=== PATIENT | female | born 1950 | race Caucasian/White ===

== ENCOUNTER → 2021-01-04 | Outpatient (CLI) | payer BC, MEDICARE ==
[~2021-01-04] MED LIST: CATHETER FLUSH 10 ML SYR IV PRN
--- NOTE | 2021-01-04 13:56 | Diagnostic Imaging Report ---
INDICATION: Right upper quadrant pain. TECHNIQUE: Patient was administered 5.5 mCi technetium-99m Choletec intravenously, and imaging over the abdomen was performed. After 60 minutes, patient ingested Ensure, and gallbladder ejection fraction was calculated. FINDINGS: There is homogeneous uptake of activity by the liver with prompt excretion of activity into the common duct and gallbladder. There is normal passage of activity into the small bowel. Gallbladder ejection fraction is abnormally low at 15%. Normal values are 35% or greater. IMPRESSION: 1. Patent cystic duct and common bile duct. 2. Abnormally low gallbladder ejection fraction of 15%. Dictated by: Dictated on workstation # [id number]
== END ==
LOC: CARD 09:29
PROVIDERS: ATTEND Surgery
DX: R10.11 Right upper quadrant pain (principal)
CPT/HCPCS: 78227; A9537

== ENCOUNTER → 2021-12-31 | Outpatient (CLI) | payer MEDICARE, OTHER ==
--- NOTE | 2021-12-31 12:21 | Diagnostic Imaging Report ---
PET/CT. INDICATION: Right lung mass. EXAMINATION: After intravenous administration of 14.04 mCi of F18-FDG injected into the right antecubital fossa, a series of overlapping emission and transmission PET images was obtained. In the coronal, transaxial and sagittal planes, the area imaged extended from the skull base through the upper thighs. Height 5' 9". Weight 165 Blood glucose 87 There are no prior PET/CT examinations or cross-sectional imaging studies available for comparison. The CT images do show a 2.5 x 4.9 cm mass in the right suprahilar region. The mass is hypermetabolic with a maximum SUV of 7.3. There is also a small roughly 1 cm hypermetabolic node in the right hilum adjacent to the mass. This has a maximum SUV of 3.73. The CT images also show several small nodules scattered about the mass in the right upper lung as well as 1 or 2 nodules in the left lung. These nodules are not hypermetabolic but still worrisome for neoplastic disease. There is a small focus of hypermetabolic activity along the posterior aspect of the right 9th rib. This has a maximum she view of 2.31. This finding is suspicious for neoplastic disease. There are also 2 small areas of slightly increased hypermetabolic activity along the periphery of the right lobe of the liver. The larger and the more inferior of these has a maximum SUV of 3.58. The other lesion is too small to accurately determine its hypermetabolic activity.. There is no other hypermetabolic activity seen to suggest malignancy. Physiologic activity is seen in the kidneys, bowel, bladder and brain. The CT images do show that there is a pleural effusion on the right. The effusion measures approximately 3.2 cm maximum depth. There is no acute abnormality identified otherwise. IMPRESSION: 1. There is a 2.5 x 4.9 cm hypermetabolic mass in the right suprahilar region. This should be considered neoplastic until proven otherwise. 2. The small node in the right hilar region in the area of increased activity along the periphery of the right lobe of the liver are most likely neoplastic as well. The smaller area of increased activity in the right 9th rib is suspicious for neoplasm as well. 3. The nodules in the right upper lobe and the scattered nodules in the left lung are not hypermetabolic but still worrisome for malignancy. 4. There is no other hypermetabolic activity to suggest the presence of malignancy. 5. There is a moderate right pleural effusion. There is no acute abnormality identified otherwise. Dictated by: Dictated on workstation # [id number]
== END ==
LOC: RAD 08:15
PROVIDERS: ATTEND Family Medicine
DX: R91.8 Other nonspecific abnormal finding of lung field (principal); J90 Pleural effusion, not elsewhere classified
CPT/HCPCS: 78815; A9552

== ENCOUNTER → 2022-01-09 | Outpatient (CLI) | payer MEDICARE, OTHER ==
[~2022-01-09] VITALS: Ht 175.3 cm; Wt 75.0 kg
[~2022-01-09] MED LIST changes: -CATHETER FLUSH 10 ML SYR IV PRN; +LIDOCAINE 1% INJ 30 ML (XYLOCAINE) VIAL INJ ONE
[2022-01-09 14:27] LABS: INR 0.9 (0.8-1.4)
--- NOTE | 2022-01-09 15:26 | Diagnostic Imaging Report ---
INDICATION: Thoracentesis follow-up. FINDINGS: There is a mass in the right upper medial chest measuring 4.7 cm in diameter. There are no infiltrates, effusions or pneumothoraces. Heart size and pulmonary vascularity are normal. IMPRESSION: Right upper lobe mass. No evidence for pneumothorax or pleural effusion following thoracentesis. Dictated by: Dictated on workstation # [id number]
[2022-01-09 15:30] VITALS: BP 119/62
[2022-01-09 15:58] LABS: BODY FLUID RBC COUNT 0.001 10^6/uL; BODY FLUID WBC TOTAL COUNT 1.846 10^3/uL
--- NOTE | 2022-01-09 16:09 | Diagnostic Imaging Report ---
INDICATION: Right-sided pleural effusion. EXAMINATION: Patient presents for ultrasound-guided thoracentesis. PROCEDURE: Patient was brought to the procedure room and placed on the bed in a sitting upright position leaning on a table. Ultrasound imaging of the right posterior thorax was performed to evaluate appropriate entry site. Right posterior thorax was then prepped and draped in the usual sterile fashion. A small amount of 1% lidocaine was utilized for local anesthesia. Thoracentesis catheter was advanced into the posterior pleural space. A total of 500 mL of fluid was removed. Catheter was removed and hemostasis was obtained. Patient tolerated the procedure well. Patient was sent for postprocedure chest x-ray in satisfactory condition. IMPRESSION: Successful ultrasound-guided thoracentesis, as described. Dictated by: Dictated on workstation # [id number]
[2022-01-09 16:36] LABS: BODY FLUID SOURCE PLEURAL
[2022-01-09 16:37] LABS: BODY FLUID APPEARENCE MOD CLDY; BODY FLUID COLOR YELLOW
== END ==
LOC: RAD 14:30
PROVIDERS: ATTEND Family Medicine
DX: R91.8 Other nonspecific abnormal finding of lung field (principal)
CPT/HCPCS: 32555; 71045; 85610; 87070; 87075; 87205; 89051; A7048; 36415

== ENCOUNTER → 2022-06-07 | Outpatient (CLI) | payer MEDICARE, OTHER ==
--- NOTE | 2022-06-07 14:29 | Diagnostic Imaging Report ---
Adenocarcinoma of the right lung. Patient was administered 26.1 mCi technetium 99m MDP intravenously and whole-body imaging was performed after a three-hour delay. No prior whole-body bone scans are available for comparison. There is normal uptake of activity by the axial and appendicular skeleton. There is uptake by the kidneys with excretion into the urinary bladder. There is some uptake involving right-sided lower anterior ribs. In reviewing the patient's prior PET/CT study from 12/31/2021, there appears to be some sclerosis involving right-sided anterior 7th and 8th ribs. There is also a focus of uptake at the lower thoracic level, at approximately T12 on the right side, near rib articulation with the vertebrae. No definite correlate on the CT is identified. No other suspicious foci are seen. IMPRESSION: Abnormal uptake involving lower right anterior ribs as well as approximately the T12 level on the right side. Metastatic lesions cannot be entirely excluded. No other suspicious regions of uptake are identified. Dictated by: Dictated on workstation # [id number]
== END ==
LOC: CARD 10:33
PROVIDERS: ATTEND Nurse Practitioner Adult Health
DX: Z51.11 Encounter for antineoplastic chemotherapy (principal); C34.11 Malignant neoplasm of upper lobe, right bronchus or lung; C78.7 Secondary malignant neoplasm of liver and intrahepatic bile duct; C79.51 Secondary malignant neoplasm of bone
CPT/HCPCS: 78306; A9503

== ENCOUNTER 2022-06-13 11:10 | Observation (INO) | payer MEDICARE, OTHER ==
[~2022-06-13] VITALS: Ht 175 cm; Wt 77.3 kg
[2022-06-13 11:27] VITALS: BP 123/67
[2022-06-13] MEDS ORDERED: LIDOCAINE 1% INJ 20 ML VIAL ONE (12:01)
[2022-06-13] MEDS ORDERED: LACTATED RINGERS 1,000 ML IV SCH (13:30)
[2022-06-13] MEDS ORDERED: LIDOCAINE 1% INJ 20 ML VIAL INJ ONE (13:30)
--- NOTE | 2022-06-13 13:41 | Diagnostic Imaging Report ---
INDICATION: Thoracentesis AP view of the chest is obtained with comparison made to study of 01/09/2022. A right hilar mass lesion is again identified. There is also an increase in right basilar density which could be due to atelectasis and/or pneumonitis. There is an approximately 10% right pneumothorax. No midline shift is seen. IMPRESSION: Mild right pneumothorax without evidence of tension pneumothorax. There is persistent right hilar density which may represent mass or adenopathy with increasing right basilar infiltrate. Dictated by: Dictated on workstation # [id number]
[2022-06-13 15:15] VITALS: BP 121/62
--- NOTE | 2022-06-13 15:42 | History & Physical-Surgical ---
History of Present Illness History of Present Illness Patient Consulted On(darci/time) 06/13/22 15:37 Date Seen by Provider: Jun 13, 2022 Time Seen by Provider: 12:00 History of Present Illness This is a 71y F with PMH of metastatic lung cancer. Patient presented for right ultrasound guided thoracentesis. After procedure she became hypotensive 80s/40s and had CP and SOB which improved upon receiving IV fluids. 2700cc was drained. CXR post procedure revealed small right pneumothorax. Patient now reports she is feeling much better, still some pain when she takes a deep breath. Denies CP, SOB, n/v, fevers. 71 year old female who came to same day surgery for thoracentesis. SHe has metastatic lung cancer. SHe has been having increasing shortenss of breath. U/s was used to do right thoracentesis and took of 2700 mL of dark bloody fluid. During she did have episode of hypotension (80's/40's) Was given fluid and improved. Also was having some chest pain and cough. Improved after catheter was removed. Had chest x ray which demonstrates small right pneumothorax. Allergies and Home Medications Allergies Coded Allergies: No Known Drug Allergies (Unverified , 01/04/21) Patient Home Medication List Home Medication List Reviewed: Yes (takes Lexapro) Past Jynecmp-Cfnimx-Tksrcu Hx Patient Social History Smoking Status: Former Smoker (quit 14 years ago) Type Used: Cigarettes Alcohol Use?: No Have you traveled recently?: No Surgeries History of Surgeries: Yes Surgeries: Section (x2), Gallbladder (2021-Kb), Tonsillectomy Cardiovascular History of Cardiac Disorders: No Neurological History of Neurological Disord: No Genitourinary History of Genitourinary Disor: No Musculoskeletal History of Musculoskeletal Dis: No Endocrine History of Endocrine Disorders: No HEENT History of HEENT Disorders: No Cancer History of Cancer: Yes Cancer: Lung (metastatic-diagnoses 2021) Psychosocial History of Psychiatric Problem: Yes Behavioral Health Disorders: Anxiety, Depression Reviewed Nursing Assessment Reviewed/Agree w Nursing PMH: Yes Family Medical History Significant Family History: Cancer (both parents-lung CA) Review of Systems-General Constitutional: No chills, No diaphoresis EENTM: No blurred vision, No double vision Respiratory: cough; No short of breath; other (pain with deep breath) Cardiovascular: chest pain; No edema Gastrointestinal: No abdominal pain, No nausea, No vomiting Genitourinary: No decreased output, No discharge Musculoskeletal: No back pain, No joint pain Skin: No change in color, No change in hair/nails Psychiatric/Neurological: Denies Headache, Denies Numbness All Other Systems Reviewed Negative Unless Noted: Yes (Negative excepted noted.) Physical Exam-General Problems Physical Exam Vital Signs Vital Signs - First Documented 06/13/22 06/13/22 11:27 15:32 Temp 36.3 Pulse 67 Resp 18 B/P (MAP) 123/67 Pulse Ox 92 O2 Delivery Room Air O2 Flow Rate 3.00 Capillary Refill : Less Than 3 Seconds General Appearance: WD/WN, no apparent distress HEENT: PERRL/EOMI, pharynx normal Neck: non-tender, supple, normal inspection Respiratory: chest non-tender, no respiratory distress, no accessory muscle use Cardiovascular: normal peripheral pulses, regular rate, rhythm, no edema, no JVD Peripheral Pulses: 2+ Dorsalis Pedis (R), 2+ Left Dors-Pedis (L), 2+ Radial Pulses (R), 2+ Radial Pulses (L) Gastrointestinal: non tender, soft Back: normal inspection, no vertebral tenderness Extremities: non-tender, normal inspection, no pedal edema Neurologic/Psychiatric: no motor/sensory deficits, alert, normal mood/affect, oriented x 3 Skin: normal color, warm/dry Lymphatic: no adenopathy Assessment/Plan Assessment/Plan Admission Diagonsis Right pneumothorax Metastatic lung cancer Hypotension Admission Status: Observation Assessment/Plan Right pneumothorax Metastatic lung cancer Hypotension-resolved Post thoracentesis CXR with 10% right pneumothorax F/u CXR in the morning, sooner if SOB worsens Discussed possibility of thoracostomy or thoravent Consult Dr. Winter Supervisory-Addendum Brief Verification & Attestation Participated in pt care: history, MDM, physical Personally performed: exam, history, MDM, supervision of care Care discussed with: Medical Student Procedures: n/a Results interpretation: Verified all documentation Verification and Attestation of Medical Student E/M Service A medical student performed and documented this service in my presence. I reviewed and verified all information documented by the medical student and made modifications to such information, when appropriate. I personally performed the physical exam and medical decision making. Diamante Sullivan, Jun 13, 2022,19:17 CLEO MATTHEW Jun 13, 2022 15:42 DIAMANTE SULLIVAN DO Jun 13, 2022 19:17
[2022-06-13 19:30] VITALS: BP 110/55
--- NOTE | 2022-06-13 22:56 | OPERATIVE REPORT ---
DATE OF SERVICE: 06/13/2022 PREOPERATIVE DIAGNOSIS: Right pleural effusion. POSTOPERATIVE DIAGNOSIS: Right pleural effusion. PROCEDURE: Ultrasound-guided thoracentesis on the right. SURGEON: Diamante Sullivan DO ANESTHESIA: 1% lidocaine. ESTIMATED BLOOD LOSS: Scant. COMPLICATIONS: None. INDICATIONS: The patient is a 71-year-old female with lung cancer. She has a pleural effusion on the right. She is having some shortness of breath. She understands risks and benefits of procedure and wished to proceed. Consent was signed in chart. DESCRIPTION OF PROCEDURE: The patient was in the sitting position, leaning forward. Ultrasound was used to isolate the largest pocket on the right chest. The area was then prepped and draped in sterile fashion. Local anesthetic was infiltrated at the skin level and through the chest wall. An 11 blade scalpel was used to make a small skin incision. Eatc-E-Tnaydzot needle and catheter were advanced through the wall. Once bloody fluid return was present, the catheter was then advanced and the needle was removed. A total of 2700 mL of dark bloody drainage was removed. The catheter was removed and sterile bandage was applied. Chest x-ray pending. Job ID: [id number] DocumentID: [id number] Dictated Date: 06/13/2022 15:21:49 Custodial Supervisor Date: 06/13/2022 22:54:00 Dictated By: DIAMANTE SULLIVAN DO
[2022-06-13 23:25] VITALS: BP 108/56
[2022-06-14 04:05] VITALS: BP 100/59
--- NOTE | 2022-06-14 07:09 | Progress Note - Surgery ---
EBONY TORRES 06/14/22 0709: Subjective Date Seen by a Provider: Jun 14, 2022 Time Seen by a Provider: 06:35 Subjective/Events-last exam Patient feels much better today. She still has SOB but she said this is her baseline. She no longer has chest pain while breathing. Her only complaint is pain at the thoracentesis site, which has been improving. Review of Systems General: No Chills, No Night Sweats HEENT: No Head Aches, No Visual Changes Pulmonary: Dyspnea; No Cough (improved, the SOB she has remaining is her baseline) Cardiovascular: No: Chest Pain, Palpitations, Lt Headedness Gastrointestinal: No: Nausea, Vomiting, Abdominal Pain Genitourinary: No Dysuria, No Frequency Musculoskeletal: back pain (at thoracentesis site); No: neck pain, shoulder pain Neurological: No: Weakness, Numbness, Confusion Objective Exam Vital Signs Date Time Temp Pulse Resp B/P (MAP) Pulse Ox O2 Delivery O2 Flow Rate FiO2 06/14/22 04:05 36.6 68 18 100/59 (73) 93 Room Air 06/13/22 23:25 36.8 62 18 108/56 (73) 95 Nasal Cannula 2.50 06/13/22 19:30 Nasal Cannula 2.50 06/13/22 19:30 63 18 110/55 (73) 96 Nasal Cannula 2.50 06/13/22 15:32 92 Nasal Cannula 3.00 06/13/22 15:15 36.9 65 16 121/62 (81) 95 Nasal Cannula 2.50 06/13/22 11:27 36.3 67 18 123/67 92 Room Air I & O 06/14/22 07:00 Intake Total 800 ml Balance 800 ml Capillary Refill : Less Than 3 Seconds General Appearance: No Apparent Distress, WD/WN HEENT: PERRL/EOMI, Moist Mucous Membranes Neck: Non Tender, Supple Respiratory: No Accessory Muscle Use, No Respiratory Distress, Decreased Breath Sounds (right apex) Cardiovascular: Regular Rate, Rhythm, No Murmur Peripheral Pulses: 2+ Dorsalis Pedis (R), 2+ Left Dors-Pedis (L), 2+ Radial Pulses (R), 2+ Radial Pulses (L) Gastrointestinal: non tender, soft Extremity: Non Tender, No Calf Tenderness, No Pedal Edema Neurologic/Psychiatric: Alert, Oriented x3 Skin: Normal Color, Warm/Dry Lymphatic: No Adenopathy Assessment/Plan Assessment/Plan Assessment/Plan Right pneumothorax Metastatic lung cancer Hypotension-improved Post thoracentesis CXR showed 10% right pneumothorax F/u CXR this morning showed worsening right pneumothorax Patient was hypotensive overnight in the 100s/50s, she has only had one bolus of LR to this point Plan to keep pt. here overnight Repeat CXR tomorrow morning or sooner if worsening SOB Consult DIAMANTE Bhakta DO 06/14/22 1534: Subjective Subjective/Events-last exam Patient doing well. Minimal shortness of breath. No chest pain at this time. Denies n/v fever sweats chills at this time. Objective Exam General Appearance: No Apparent Distress, WD/WN HEENT: PERRL/EOMI, Normal ENT Inspection Neck: Non Tender, Supple Respiratory: Chest Non Tender, No Accessory Muscle Use, No Respiratory Distress Cardiovascular: Regular Rate, Rhythm, No JVD Gastrointestinal: non tender, soft Extremity: Non Tender, No Calf Tenderness Neurologic/Psychiatric: Alert, Oriented x3 Skin: Normal Color, Warm/Dry Lymphatic: No Adenopathy Assessment/Plan Assessment/Plan Assessment/Plan Right pneumothorax s/p thoracentesis Metastatic lung cancer Hypotension-improved Slight increase in right pneumothorax clinically stable will conservatively manage Patient was hypotensive overnight in the 100s/50s, she has only had one bolus of LR to this point -monitor Plan to keep pt. here overnight Repeat CXR tomorrow morning or sooner if worsening SOB Supervisory-Addendum Brief Verification & Attestation Participated in pt care: history, MDM, physical Personally performed: exam, history, MDM, supervision of care Care discussed with: Medical Student Procedures: n/a Results interpretation: Verified all documentation Verification and Attestation of Medical Student E/M Service A medical student performed and documented this service in my presence. I reviewed and verified all information documented by the medical student and made modifications to such information, when appropriate. I personally performed the physical exam and medical decision making. Diamante Sullivan, Jun 14, 2022,15:34 EBONY TORRES Jun 14, 2022 07:09 DIAMANTE SULLIVAN DO Jun 14, 2022 15:34
[2022-06-14 07:30] VITALS: BP 99/52
[2022-06-14 09:40] LABS: HEMATOCRIT 35 % (35-52); HEMOGLOBIN 11.6 g/dL (11.5-16.0); MEAN CORPUSCULAR HEMOGLOBIN 33 pg (25-34); MEAN CORPUSCULAR HGB CONC 33 g/dL (32-36); MEAN CORPUSCULAR VOLUME 101 fL (80-99); MEAN PLATELET VOLUME 10.1 fL (9.0-12.2); PLATELET COUNT 227 10^3/uL (130-400)
[2022-06-14 09:53] LABS: POTASSIUM 3.6 MMOL/L (3.6-5.0)
[2022-06-14 09:55] LABS: CALCIUM 8.8 MG/DL (8.5-10.1)
[2022-06-14 09:59] LABS: CREATININE SERUM 0.68 MG/DL (0.60-1.30)
--- NOTE | 2022-06-14 10:31 | Diagnostic Imaging Report ---
EXAMINATION: Chest 1 view HISTORY: Follow-up right-sided pneumothorax. COMPARISON: 06/13/2022. FINDINGS: Stable left-sided port. There has been interval increase in a right-sided pneumothorax, now measuring approximately 4 cm from the lung apex. Increasing patchy and consolidative opacities are seen in the mid and lower left lung. The left lung is clear. The heart size is stable. There is calcified aortic atherosclerotic plaque. IMPRESSION: 1. Increasing moderate right-sided pneumothorax. No mediastinal shift. Recommend continued follow-up, as indicated. 2. Increase in opacities in the mid and lower right lung. Report given to Dr. Sullivan at 10:31 AM 06/14/2022/cb Dictated by: Dictated on workstation # [id number]
--- NOTE | 2022-06-14 11:38 | Consultation - Hospitalist ---
HPI History of Present Illness: HPI/Chief Complaint Patient is 71-year-old female with past medical history of metastatic lung cancer who was admitted following a thoracentesis due to pneumothorax. She reports feeling better and has no shortness of breath today. She had roughly 2- 1/2 L drained yesterday that was mostly bloody. She currently has a CBC pending. She states that she takes no medications and has no medical problems other than her cancer. Source: patient Date Seen 06/14/22 Attending Physician Adele Lau MD PCP Admitting Physician: Attending Physician: Dmitry Sullivan DO Referring Physician Date of Admission Home Medications & Allergies Home Medications Reviewed patient Home Medication Reconciliation performed by pharmacy medication reconciliations lot technician and/or nursing. Patients Allergies have been reviewed. Allergies Allergies Coded Allergies No Known Drug Allergies (Cdhvlbczuz46/11/21) Past Hdjimmw-Zszwdx-Xeddde Hx Patient Social History Tobacco Use?: No Smoking Status: Former Smoker (quit 14 years ago) Use of E-Cig and/or Vaping dev: No Substance use?: No Alcohol Use?: No Pt feels they are or have been: No Current Status status: No status: No Communicates: Verbally Primary Language: Wallisian Preferred Spoken Language: Wallisian Sensory deficits: Vision impairment Implanted or Applied Medical D: Central venous access Past Medical History Surgeries: Section (x2), Gallbladder (2021-Kb), Tonsillectomy Lung (metastatic-diagnoses 2021) Anxiety, Depression Family Medical History Cancer (both parents-lung CA) Review of Systems Constitutional: see HPI Physical Exam Physical Exam Vital Signs Vital Signs - First Documented 06/13/22 06/13/22 11:27 15:15 Temp 36.3 Pulse 67 Resp 18 B/P (MAP) 123/67 Pulse Ox 92 O2 Delivery Room Air O2 Flow Rate 2.50 Capillary Refill : Less Than 3 Seconds Height, Weight, BMI Height: '" Weight: lbs. oz. kg; 25.24 BMI Method: General Appearance: No Apparent Distress, WD/WN HEENT: PERRL/EOMI, Moist Mucous Membranes Neck: Non Tender, Supple Respiratory: No Accessory Muscle Use, No Respiratory Distress Cardiovascular: Regular Rate, Rhythm, No Murmur Extremity: Non Tender, No Calf Tenderness, No Pedal Edema Neurologic/Psychiatric: Alert, Oriented x3 Skin: Normal Color, Warm/Dry Lymphatic: No Adenopathy Results Results/Procedures Labs Laboratory Tests 06/14/22 09:34 Patient resulted labs reviewed. Assessment/Plan Assessment and Plan Assess & Plan/Chief Complaint Pleural effusion Pneumothorax Metastatic Lung Cancer s/p thoracentesis yesteday fluid was bloody, sent for path Pneumothorax increased in size this AM on CXR Management per primary BP improved- has no hypertension at home on no meds ordered CBC- Hgb 11 Will round as needed Diagnosis/Problems Diagnosis/Problems (1) Pneumothorax, right (2) Lung cancer JANE DRIVER MD Jun 14, 2022 11:38
[2022-06-14 11:45] VITALS: BP 107/54
[2022-06-14 15:42] VITALS: BP 109/53
[2022-06-14 19:23] VITALS: BP 127/76
[2022-06-14 23:15] VITALS: BP 113/56
[2022-06-15 03:42] VITALS: BP 120/59
[2022-06-15 07:08] VITALS: BP 120/66
--- NOTE | 2022-06-15 10:01 | Diagnostic Imaging Report ---
EXAMINATION: Chest 1 view HISTORY: Pneumothorax COMPARISON: 06/14/2022 FINDINGS: There is a moderate right pneumothorax is unchanged in size. Left lung is clear. Right mid and lower zone opacities are unchanged. Heart size is normal. IMPRESSION: 1. Unchanged moderate right pneumothorax and right middle and lower zone airspace opacities. Dictated by: Dictated on workstation # [id number]
[2022-06-15 11:30] VITALS: BP 118/59
--- NOTE | 2022-06-15 12:08 | Discharge Inst-Surgical ---
D/C Lap Instructions-KIDO Reconcile Patient Problems Problems Reviewed?: Yes Follow Up Dr. Renteria as scheduled Activity as tolerated No driving while on pain medications Incentive Spirometry use every 2 hours while awake Symptoms to Report: Fever over 101 degree F, Nausea/Vomiting If any problems/questions: Contact your physician or go to Emergency Room FREDA ARTIS APRN Jun 15, 2022 12:08
--- NOTE | 2022-06-15 12:14 | Progress Note ---
Subjective Date Seen by a Provider: Jun 15, 2022 Time Seen by a Provider: 11:00 Subjective/Events-last exam doing well. no resting or exertional SOB. CXR stable. Objective Exam Vital Signs Date Time Temp Pulse Resp B/P (MAP) Pulse Ox O2 Delivery O2 Flow Rate FiO2 06/15/22 11:30 36.5 77 20 118/59 (78) 96 Nasal Cannula 2.50 06/15/22 08:00 Nasal Cannula 2.50 06/15/22 07:08 36.3 63 20 120/66 (84) 99 Nasal Cannula 2.50 06/15/22 03:42 36.8 61 16 120/59 (79) 96 Nasal Cannula 2.50 06/14/22 23:15 36.4 71 18 113/56 (75) 97 Nasal Cannula 2.50 06/14/22 20:00 Nasal Cannula 2.50 06/14/22 19:23 36.4 71 20 127/76 (93) 100 Nasal Cannula 2.50 06/14/22 15:42 36.4 71 18 109/53 (71) 96 Nasal Cannula 2.50 I & O 06/15/22 07:00 Intake Total 1640 ml Output Total 1050 ml Balance 590 ml Capillary Refill : Less Than 3 Seconds General Appearance: No Apparent Distress HEENT: PERRL/EOMI Neck: Full Range of Motion Respiratory: Chest Non Tender, Decreased Breath Sounds, Rhonci Cardiovascular: Regular Rate, Rhythm Gastrointestinal: normal bowel sounds, non tender, soft Extremity: Normal Capillary Refill Neurologic/Psychiatric: Alert, Oriented x3 Skin: Normal Color Lymphatic: No Adenopathy Assessment/Plan Assessment/Plan Assess & Plan/Chief Complaint s/p right thorocentesis for malignant pleural effusion. small residual ptx on cxr which is expected due to tumor burden and decreased lung compliance. patient asymptomatic now. will check home O2 study and likely d/c home. JAMILA DAVIES MD Jun 15, 2022 12:14
[2022-06-15 14:37] VITALS: BP 118/59
== END 2022-06-15 14:39 | disposition home or self-care (01) ==
LOC: SDC 11:10 → 4TH 15:00
PROVIDERS: ADMIT Surgery; ATTEND Surgery
DX: C34.01 Malignant neoplasm of right main bronchus (principal); J91.0 Malignant pleural effusion; J95.811 Postprocedural pneumothorax; I95.81 Postprocedural hypotension; H54.7 Unspecified visual loss; Z80.1 Family history of malignant neoplasm of trachea, bronchus and lung; Z87.891 Personal history of nicotine dependence
CPT/HCPCS: 32555; 71045 ×3; 80048; 85027; 94761; G0378; G0379; 36415

== ENCOUNTER → 2022-09-19 | Outpatient (CLI) | payer MEDICARE, OTHER | LOC: PREOP 10:17 | PROVIDERS: ATTEND Surgery | DX: Z01.818 Encounter for other preprocedural examination (principal) ==

== ENCOUNTER → 2022-09-20 | Outpatient (CLI) | payer MEDICARE, OTHER ==
[~2022-09-20] MED LIST changes: +LIDOCAINE 1% INJ 20 ML VIAL ONE; -LIDOCAINE 1% INJ 30 ML (XYLOCAINE) VIAL INJ ONE
--- NOTE | 2022-10-08 12:30 | Diagnostic Imaging Report ---
US-NOCHG GUIDE PARA/THOR INDICATION: Lung cancer. Pleural effusion. COMPARISON: None available. FINDINGS AND IMPRESSION: Limited ultrasound of the right posterior chest was performed to evaluate for pleural effusion. There is no pleural effusion available for thoracentesis. Therefore, no marking was performed. Dictated by: Dictated on workstation # [id number]
== END ==
LOC: SDC 12:21
PROVIDERS: ATTEND Surgery
DX: C34.91 Malignant neoplasm of unspecified part of right bronchus or lung (principal)

== ENCOUNTER 2022-10-09 13:41 | Day surgery (SDC) | payer MEDICARE, OTHER ==
[2022-10-09] MEDS ORDERED: LIDOCAINE 1% INJ 20 ML VIAL ONE (13:55)
[2022-10-09 14:45] VITALS: BP 104/58
[2022-10-09] MEDS ORDERED: LACTATED RINGERS 1,000 ML 1,000 ML IV PRN (16:00)
--- NOTE | 2022-10-09 18:29 | Diagnostic Imaging Report ---
Exam: Ultrasound chest. Date: October 09, 2022. Indication: 72-year-old female, history of right lung cancer. Evaluation for pleural effusion. Findings/ impression: There is no sizable pleural effusion demonstrated. Dictated by: Dictated on workstation # [id number]
== END 2022-10-09 14:45 | disposition home or self-care (01) ==
LOC: SDC 13:41
PROVIDERS: ATTEND Surgery
DX: C34.91 Malignant neoplasm of unspecified part of right bronchus or lung (principal); Z53.8 Procedure and treatment not carried out for other reasons
CPT/HCPCS: 76604

== ENCOUNTER → 2022-12-27 | Outpatient (CLI) | payer MEDICARE, OTHER ==
[~2022-12-27] MED LIST changes: -LIDOCAINE 1% INJ 20 ML VIAL ONE; +REGADENOSON 0.4 MG/5 ML SYR IV ONE
[2022-12-27] MEDS: CATHETER FLUSH 10 ML SYR IVP PRN ×2 (07:59→09:22)
[2022-12-27 09:15] VITALS: BP 141/73
--- NOTE | 2023-01-01 13:07 | STRESS TEST ---
DATE OF SERVICE: 12/27/2022 RESTING AND POST REGADENOSON TECHNETIUM-99M TETROFOSMIN SPECT CT IMAGING ORDERING PHYSICIAN: Dr. Morin. PRIMARY PHYSICIAN: Dr. Lau. CLINICAL DIAGNOSIS: Palpitations. Baseline images were carried out after injection of 10.7 mCi of technetium-99m tetrofosmin. This was followed by 0.4 mg regadenoson and 31.7 mCi of technetium-99m tetrofosmin for stress imaging. The electrocardiogram showed sinus rhythm with nonspecific T-wave abnormality as a baseline. The electrocardiogram did not change significantly with regadenoson infusion. Review of images at rest and following stress does not indicate any distinct perfusion defects consistent with significant myocardial ischemia or infarction. Hernandez images show normal global left ventricular systolic function with normal regional wall motion. Left ventricular ejection fraction is calculated to be 71%. CONCLUSIONS: 1. No evidence of any significant myocardial ischemia or infarction. 2. Normal regional wall motion. 3. Normal global left ventricular systolic function with a calculated ejection fraction of 71%. Job ID: [id number] DocumentID: [id number] Dictated Date: 01/01/2023 09:47:53 Quality Systems Specialist Date: 01/01/2023 13:05:00 Dictated By: ENRIQUE MORIN MD; LETICIA; FACP; FACC;
== END ==
LOC: CARD 07:44
PROVIDERS: ATTEND Internal Medicine Cardiovascular Disease
DX: R00.2 Palpitations (principal)
CPT/HCPCS: 78452; 93017; A9502